=== PATIENT | female | born 1955 | race Asian ===

== ENCOUNTER 2016-08-11 17:10 | Emergency (ER) | payer OTHER ==
[~2016-08-11] VITALS: Ht 157.5 cm; Wt 69.0 kg
[2016-08-11] MEDS ORDERED: FENTANYL CITRATE/PF 50MCG/ML 2ML VIAL IV ONE ×2 (18:30→20:15)
[2016-08-11] MEDS ORDERED: MIDAZOLAM HCL 2 MG/2 ML VIAL IV ONE (20:15)
[2016-08-11 22:24] VITALS: BP 155/100
== END 2016-08-11 22:48 | disposition home or self-care (01) ==
LOC: ER 17:11
DX: S43.084A Other dislocation of right shoulder joint, initial encounter (principal); W11.XXXA Fall on and from ladder, initial encounter; Y93.89 Activity, other specified; Y92.090 Kitchen in other non-institutional residence as the place of occurrence of the external cause; I10 Essential (primary) hypertension; I44.7 Left bundle-branch block, unspecified
CPT/HCPCS: 23650; 73030; 96374; 99152; 99285; J2250; J3010; Z7610; L3670

== ENCOUNTER 2024-04-01 11:36 | Emergency (ER) | payer MEDICARE, MEDICAID ==
[~2024-04-01] VITALS: Ht 165.1 cm; Wt 65.0 kg
[2024-04-01 11:38] VITALS: BP 159/98; O2SAT 98
[2024-04-01] MEDS ORDERED: ACETAMINOPHEN 325MG TABLET PO ONE (12:30)
[2024-04-01] MEDS ORDERED: METHOCARBAMOL 500MG TABLET PO ONE (12:30)
[2024-04-01] MEDS ORDERED: LIDO700A30 TP (13:35)
[2024-04-01] MEDS ORDERED: METH-653 MT (13:35)
[2024-04-01] MEDS ORDERED: IBUP-2029 MT (13:35)
[2024-04-01] MEDS: ACETAMINOPHEN 325MG TABLET PO NR (15:12)
[2024-04-01] MEDS: METHOCARBAMOL 500MG TABLET PO NR (15:13)
[2024-04-01 15:23] VITALS: PULSE 72; RESP 18; TEMP 36.61404; O2SAT 99
== END 2024-04-01 15:22 | disposition home or self-care (01) ==
LOC: ER 11:36
DX: S63.502A Unspecified sprain of left wrist, initial encounter (principal); S13.4XXA Sprain of ligaments of cervical spine, initial encounter; R07.89 Other chest pain; I10 Essential (primary) hypertension; V03.10XA Pedestrian on foot injured in collision with car, pick-up truck or van in traffic accident, initial encounter; Y93.01 Activity, walking, marching and hiking; Y92.89 Other specified places as the place of occurrence of the external cause; Y99.8 Other external cause status
CPT/HCPCS: 71045; 73110; 73502; 99284